=== PATIENT | female | born 1970 | race Caucasian/White ===

== ENCOUNTER 2016-10-05 00:20 | Emergency (ER) | payer OTHER ==
[~2016-10-05] VITALS: Ht 167.6 cm; Wt 85.0 kg
[~2016-10-05 00:20] MED LIST: TRAM50TA PO
[2016-10-05 00:24] VITALS: BP 138/74; PULSE 86; RESP 16; TEMP 98.8; O2SAT 97
[2016-10-05] MEDS ORDERED: GABA100C4 PO (00:28)
[2016-10-05] MEDS ORDERED: KETOROLAC TROMETHAMINE 60 MG/2 ML (IM) VIAL IM ONE (00:45)
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
== END 2016-10-05 02:38 | disposition home or self-care (01) ==
LOC: NEPE 00:20
DX: M25.512 Pain in left shoulder (principal); F10.129 Alcohol abuse with intoxication, unspecified; F17.290 Nicotine dependence, other tobacco product, uncomplicated; I10 Essential (primary) hypertension; K21.9 Gastro-esophageal reflux disease without esophagitis
CPT/HCPCS: 73030; 84703; 96372; 99284; J1885

== ENCOUNTER 2016-11-14 08:41 | Emergency (ER) | payer OTHER ==
[~2016-11-14] VITALS: Ht 170.2 cm; Wt 76.3 kg
[~2016-11-14 08:41] MED LIST changes: +GABA100C4 PO; -TRAM50TA PO
[2016-11-14 08:42] VITALS: BP 118/93; PULSE 90; RESP 20; TEMP 98.4; O2SAT 99
[2016-11-14] MEDS ORDERED: ACETAMINOPHEN/HYDROcodone 325 MG/5 MG TAB PO ONE (09:00)
--- NOTE | 2016-11-14 09:21 | PD ---
HPI Chief Complaint: Injury Time Seen by Provider: 08:54 Travel History International Travel<30 days: No Contact w/Intl Traveler<30days: No Traveled to known affect area: No History of Present Illness HPI 46-year-old female presents to the emergency department with complaint of right ankle pain and swelling since last night after tripping in a hole in the ground and falling. Denies hitting her head or loss of consciousness. Denies neck pain or back pain. Has been ambulatory on the affected extremity. Reports pain is to the lateral aspect. Denies paresthesias, loss of sensation to the affected extremity. Has not taken any medications or tried any treatments to review her symptoms. Pain is aggravated with palpation, movement, ambulation. Symptoms are moderate in severity. Allergies to penicillin. No other medical complaints. No other modifying factors or associated signs and symptoms. PFSH Past Medical History Arthritis: No Blood Disorders: No Anxiety: Yes Depression: Yes Heart Rhythm Problems: No Cancer: No Cardiovascular Problems: Yes High Cholesterol: No Chest Pain: Yes Congestive Heart Failure: No Cerebrovascular Accident: No Diminished Hearing: No Endocrine: No Gastrointestinal Disorders: Yes GERD: Yes Genitourinary: No Headaches: Yes Hepatitis: No Hiatal Hernia: No Hypertension: Yes Immune Disorder: No Implanted Vascular Access Dvce: Yes Musculoskeletal: Yes Neurologic: Yes Psychiatric: Yes Reproductive: No Respiratory: No Migraines: No Myocardial Infarction: No Seizures: Yes (SINCE 2000) Ulcer: No ?: Not LMP: CURRENT : 3 Para: 2 Miscarriage: 1 Past Surgical History Abdominal Surgery: No AICD: No Appendectomy: No Arteriovenous Shunt: No Cardiac Surgery: No Cholecystectomy: No Ear Surgery: No Endocrine Surgery: No Eye Surgery: No Genitourinary Surgery: No Gynecologic Surgery: No Insulin Pump: No Joint Replacement: Yes Neurologic Surgery: No Oral Surgery: No Pacemaker: No Thoracic Surgery: No Other Surgery: Yes Social History Alcohol Use: Yes (OCC) Tobacco Use: Yes (1/4 PACK DAILY) Substance Use: No Allergies-Medications (Allergen,Severity, Reaction): Coded Allergies: penicillin G (Unverified Allergy, Severe, 10/09/16) Reported Meds & Prescriptions Reported Meds & Active Scripts Active Ibuprofen 800 Mg Tab 800 Mg PO Q6HR PRN Lortab (Hydrocodone-Acetaminophen) 5-325 Mg Tab 1-2 Tab PO Q6H PRN Reported Gabapentin 100 Mg Cap 100 Mg PO TID Review of Systems Except as stated in HPI: all other systems reviewed are Neg Physical Exam Narrative GENERAL: Well-nourished, well-developed female patient, in no acute distress SKIN: Warm and dry. HEAD: Atraumatic. Normocephalic. EYES: Pupils equal and round. No scleral icterus. No injection or drainage. ENT: Mucosa pink and moist. Airway patent. NECK: Trachea midline. CARDIOVASCULAR: Regular rate. RESPIRATORY: No accessory muscle use. GASTROINTESTINAL: Rounded. MUSCULOSKELETAL: Right ankle with point tenderness to the lateral malleolar zone with palpation; edema noted to the lateral malleolar aspect; without ecchymosis, erythema; no obvious deformity. Right Lower extremity is supple and nontense with 2+ pedal pulse and sensory intact. No obvious deformities. No clubbing. No cyanosis. NEUROLOGICAL: Awake and alert. Oriented 3. No obvious cranial nerve deficits. Motor grossly within normal limits. Normal speech. PSYCHIATRIC: Appropriate mood and affect; insight and judgment normal. Data Data Last Documented VS Vital Signs Date Time Temp Pulse Resp B/P (MAP) Pulse Ox O2 Delivery O2 Flow Rate FiO2 11/14/16 10:54 11/14/16 08:51 Room Air 11/14/16 08:42 98.4 90 20 99 Orders Orders Acetamin-Hydrocod 325-5 Mg ([place] 5-325 (11/14/16 09:00) Ankle, Complete ([id number]) (11/14/16 08:56) Ice/Cold Pack (11/14/16 08:56) Crutches (11/14/16 08:56) Splint Or Brace Apply/Monitor (11/14/16 09:40) MDM Medical Decision Making Medical Screen Exam Complete: Yes Emergency Medical Condition: Yes Medical Record Reviewed: Yes Differential Diagnosis Ankle sprain, ankle fracture, ankle injury Narrative Course 46-year-old female with right ankle injury after mechanical fall last night. Lortab administered in the ER. Right ankle x-ray ordered. 0939: Right ankle x-ray concludes: Last 24 hours Impressions Ankle X-Ray 11/14/16 0856 Signed Impressions: Service Date/Time: Monday, November 14, 2016 09:21 - CONCLUSION: 1. Nondisplaced oblique fracture of the distal fibular metaphysis with adjacent soft tissue swelling. 2. Nonspecific ossific density projecting anterior to the tibiotalar joint on the lateral view. Question whether this may represent a fracture fragment, change related to old trauma, or a loose body. Marcos Lopez MD Herrera splint placed in emergency department. Crutches provided for support. Lortab and ibuprofen prescribed for home. Instructed patient to follow up with orthopedics by the end of the week. Instructed patient to follow up with primary care provider. Patient verbalizes understanding and agreement with treatment plan. Patient is medically cleared and stable for discharge. Discussed reasons to return to the emergency department. Patient agrees with treatment plan. The patients vital signs are stable and the patient is stable for outpatient follow-up and treatment. Patient discharged home, stable and in no acute distress. Diagnosis Primary Impression: Ankle fracture, right Qualified Codes: S82.891A - Other fracture of right lower leg, initial encounter for closed fracture Referrals: Orthopaedic Surgeon Primary Care Physician Patient Instructions: Ankle Fracture (ED), Crutch Instructions (ED), General Instructions Departure Forms: Tests/Procedures, Work Release Special Instructions: No work until cleared by primary care provider or orthopedics Additional Instructions: Tylenol or ibuprofen as directed and as needed for pain and inflammation Rest, ice, compress, and elevate extremity to decrease pain and inflammation Splint for support; do not remove splint until cleared Crutches for support; no bearing weight until you follow up with orthopedics for further instruction Avoid aggravating activity; increase activity as tolerated Follow-up with primary care provider Follow-up with orthopedics within 3-5 days Return to the emergency department immediately with worsening of symptoms Med/Other Pt SpecificInfo: Prescription(s) given Scripts Ibuprofen (Ibuprofen) 800 Mg Tab 800 MG PO Q6HR Y for PAIN, #30 TAB 0 Refills Prov: Mehnaz Talley 11/14/16 Hydrocodone-Acetaminophen (Lortab) 5-325 Mg Tab 1-2 TAB PO Q6H Y for PAIN, #20 TAB 0 Refills Prov: Mehnaz Talley 11/14/16 Disposition: 01 DISCHARGE HOME Condition: Stable Mehnaz Talley Nov 14, 2016 09:20
--- NOTE | 2016-11-14 09:30 | RADRPT ---
EXAM DATE/TIME: 11/14/2016 09:21 [facility] COMPARISON: No previous studies available for comparison. INDICATIONS : Twisted ankle in hole, pain with swelling lateral malleous. MEDICAL HISTORY : None. SURGICAL HISTORY : None. ENCOUNTER: Initial ACUITY: 2 days PAIN SCORE: 8/10 LOCATION: Right ankle. FINDINGS: 3 views of the right ankle demonstrate an oblique nondisplaced fracture through the distal fibular me taphysis. Medial fracture line extends to about the level of the syndesmosis. There is adjacent later al ankle soft tissue swelling. Ankle mortise is intact. There is nonspecific osseous density projecti ng anterior to the distal tibial epiphysis only visualized on the lateral projection. No radiopaque f oreign body is seen. CONCLUSION: 1. Nondisplaced oblique fracture of the distal fibular metaphysis with adjacent soft tissue swelling. 2. Nonspecific ossific density projecting anterior to the tibiotalar joint on the lateral view. Quest ion whether this may represent a fracture fragment, change related to old trauma, or a loose body. Marcos Lopez MD on November 14, 2016 at 9:26 Board Certified Radiologist. This report was verified electronically.
[2016-11-14] MEDS ORDERED: IBUP800T23 PO (09:44)
[2016-11-14] MEDS ORDERED: HYDR-3533 PO (09:44)
== END 2016-11-14 10:55 | disposition home or self-care (01) ==
LOC: NEPD 08:41
DX: S82.891A Other fracture of right lower leg, initial encounter for closed fracture (principal); W01.0XXA Fall on same level from slipping, tripping and stumbling without subsequent striking against object, initial encounter; Y93.01 Activity, walking, marching and hiking; I10 Essential (primary) hypertension; Z72.0 Tobacco use
CPT/HCPCS: 29515; 73610; 99283; E0113

== ENCOUNTER 2016-11-23 14:02 | Emergency (ER) | payer OTHER ==
[~2016-11-23] VITALS: Ht 170.2 cm; Wt 80.0 kg
[~2016-11-23 14:02] MED LIST changes: +HYDR-3533 PO; +IBUP800T23 PO
[2016-11-23 14:05] VITALS: BP 152/84; PULSE 98; RESP 17; TEMP 98.5; O2SAT 97
--- NOTE | 2016-11-23 15:46 | PD ---
HPI Chief Complaint: Musculoskeletal Complaint Time Seen by Provider: 15:46 Travel History International Travel<30 days: No Contact w/Intl Traveler<30days: No Traveled to known affect area: No History of Present Illness HPI 46-year-old female requesting that her right lower extremity Mackall splint be rewrapped with an Nathaniel wrap. Apparently she took off the Nathaniel wrap and was unable to get the Nathaniel wrap back on in a secure fashion. She denies fully removing the splint itself. She denies increased pain in the extremity she reports the area is actually less painful. She is also requesting referral to orthopedic doctor stating she lost her paperwork. She denies any medical complaint. She is requesting only to have the splint rewrapped with an Nathaniel and or the referral. PFSH Past Medical History Arthritis: No Blood Disorders: No Anxiety: Yes Depression: Yes Heart Rhythm Problems: No Cancer: No Cardiovascular Problems: Yes High Cholesterol: No Chest Pain: Yes Congestive Heart Failure: No Cerebrovascular Accident: No Diminished Hearing: No Endocrine: No Gastrointestinal Disorders: Yes GERD: Yes Genitourinary: No Headaches: Yes Hepatitis: No Hiatal Hernia: No Hypertension: Yes Immune Disorder: No Implanted Vascular Access Dvce: Yes Musculoskeletal: Yes Neurologic: Yes Psychiatric: Yes Reproductive: No Respiratory: No Migraines: No Myocardial Infarction: No Seizures: Yes (SINCE 2000) Ulcer: No ?: Not LMP: 11/09/16 : 3 Para: 2 Miscarriage: 1 Past Surgical History Abdominal Surgery: No AICD: No Appendectomy: No Arteriovenous Shunt: No Cardiac Surgery: No Cholecystectomy: No Ear Surgery: No Endocrine Surgery: No Eye Surgery: No Genitourinary Surgery: No Gynecologic Surgery: No Insulin Pump: No Joint Replacement: Yes Neurologic Surgery: No Oral Surgery: No Pacemaker: No Thoracic Surgery: No Other Surgery: Yes Social History Alcohol Use: Yes ([facility]) Tobacco Use: Yes (1/4 PACK DAILY) Substance Use: No Allergies-Medications (Allergen,Severity, Reaction): Coded Allergies: penicillin G (Verified Allergy, Severe, 11/23/16) Reported Meds & Prescriptions Reported Meds & Active Scripts Active Ibuprofen 800 Mg Tab 800 Mg PO Q6HR PRN Lortab (Hydrocodone-Acetaminophen) 5-325 Mg Tab 1-2 Tab PO Q6H PRN Reported Gabapentin 100 Mg Cap 100 Mg PO TID Review of Systems Except as stated in HPI: all other systems reviewed are Neg General / Constitutional: No: Fever Eyes: No: Visual changes HENT: No: Headaches Cardiovascular: No: Chest Pain or Discomfort Physical Exam Narrative GENERAL: Well-nourished, well-developed patient. SKIN: Focused skin assessment warm/dry. CARDIOVASCULAR: Regular rate and rhythm without murmurs, gallops, or rubs. RESPIRATORY: Breath sounds equal bilaterally. No accessory muscle use. MUSCULOSKELETAL: No cyanosis, or edema. Diaz splint to the right lower extremity. Patient has normal sensation, coloration and brisk cap refill of the toes. Data Data Last Documented VS Vital Signs Date Time Temp Pulse Resp B/P (MAP) Pulse Ox O2 Delivery O2 Flow Rate FiO2 11/23/16 15:56 11/23/16 14:05 98.5 98 17 97 Room Air Orders Orders Nathaniel Bandage (11/23/16 15:40) MDM Medical Decision Making Medical Screen Exam Complete: Yes Emergency Medical Condition: Yes Differential Diagnosis Splint reapplication, ankle fracture recheck. Narrative Course 46-year-old female requesting that her right lower extremity Mackall splint be rewrapped with an Nathaniel wrap. Apparently she took off the Nathaniel wrap and was unable to get the Nathaniel wrap back on in a secure fashion. She denies fully removing the splint itself. She denies increased pain in the extremity she reports the area is actually less painful. She is also requesting referral to orthopedic doctor stating she lost her paperwork. She denies any medical complaint. She is requesting only to have the splint rewrapped with an Nathaniel and or the referral. Diagnosis Primary Impression: Ankle fracture Qualified Codes: S82.891D - Other fracture of right lower leg, subsequent encounter for closed fracture with routine healing Referrals: Jeff Diaz MD Orthopedist Additional Instructions: Make an appointment with orthopedic for follow-up this week. Keep the splint in place. Disposition: 01 DISCHARGE HOME Condition: Stable Marco AntonioquianaBarb Nov 23, 2016 15:46
== END 2016-11-23 16:00 | disposition home or self-care (01) ==
LOC: NEPK 14:02
DX: S82.891D Other fracture of right lower leg, subsequent encounter for closed fracture with routine healing (principal); X58.XXXD Exposure to other specified factors, subsequent encounter
CPT/HCPCS: 99282

== ENCOUNTER 2017-01-06 02:52 | Emergency (ER) | payer OTHER ==
[~2017-01-06 02:52] MED LIST changes: +IBUP1TAB7 PO; -IBUP800T23 PO
[2017-01-06] MEDS ORDERED: SODIUM CHLORIDE 0.9% FLUSH 10 ML FLUSH IV FLUSH PRN (03:00)
[2017-01-06 03:01] VITALS: BP 143/76; PULSE 89; RESP 18; TEMP 98.6; O2SAT 98
[2017-01-06] MEDS ORDERED: CITA20TA4 PO (03:04)
[2017-01-06] MEDS ORDERED: GABA800T PO (03:04)
[2017-01-06] MEDS ORDERED: TRAZ50TA12 PO (03:04)
--- NOTE | 2017-01-06 03:06 | PD ---
HPI Chief Complaint: Injury Time Seen by Provider: 03:02 Travel History International Travel<30 days: No Contact w/Intl Traveler<30days: No Traveled to known affect area: No History of Present Illness HPI Patient comes emergency Department complaining of right lower lateral rib pain described as sharp stabbing like in nature that began shortly prior to arrival. Patient states she was sleeping on the top bunk when she accidentally rolled out of the bunk bed hitting her right lower rib cage on unknown object. Patient states pain is worse with deep inspiration. Patient denies doing anything for this prior to coming to the emergency department. Denies hitting her head or loss of consciousness. Denies being on any blood thinners. PFSH Past Medical History Arthritis: No Blood Disorders: No Anxiety: Yes Depression: Yes Heart Rhythm Problems: No Cancer: No Cardiovascular Problems: Yes High Cholesterol: No Chest Pain: Yes Congestive Heart Failure: No Cerebrovascular Accident: No Diminished Hearing: No Endocrine: No Gastrointestinal Disorders: Yes GERD: Yes Genitourinary: No Headaches: Yes Hepatitis: No Hiatal Hernia: No Hypertension: Yes Immune Disorder: No Implanted Vascular Access Dvce: Yes Musculoskeletal: Yes Neurologic: Yes Psychiatric: Yes Reproductive: No Respiratory: No Migraines: No Myocardial Infarction: No Seizures: Yes (SINCE 2000) Ulcer: No ?: Unknown : 3 Para: 2 Miscarriage: 1 Past Surgical History Abdominal Surgery: No AICD: No Appendectomy: No Arteriovenous Shunt: No Cardiac Surgery: No Cholecystectomy: No Ear Surgery: No Endocrine Surgery: No Eye Surgery: No Genitourinary Surgery: No Gynecologic Surgery: No Insulin Pump: No Joint Replacement: Yes Neurologic Surgery: No Oral Surgery: No Pacemaker: No Thoracic Surgery: No Other Surgery: Yes Social History Alcohol Use: Yes ([facility]) Tobacco Use: Yes (1/4 PACK DAILY) Substance Use: No Allergies-Medications (Allergen,Severity, Reaction): Coded Allergies: penicillin G (Verified Allergy, Severe, 11/23/16) Reported Meds & Prescriptions Reported Meds & Active Scripts Active Reported Citalopram (Citalopram Hydrobromide) 20 Mg Tab 20 Mg PO DAILY Trazodone (Trazodone HCl) 50 Mg Tab 50 Mg PO HS Gabapentin 800 Mg Tab 800 Mg PO TID Review of Systems Except as stated in HPI: all other systems reviewed are Neg Physical Exam Narrative GENERAL: Well-developed, overly nourished, in no acute distress, and non-ill appearing. SKIN: Focused skin assessment warm and dry. No ecchymosis appreciated over right lower lateral rib cage or abdomen. HEAD: Atraumatic. Normocephalic. EYES: Pupils equal and round. EOMI. No scleral icterus. No injection or drainage. ENT: No nasal bleeding or discharge. Mucous membranes pink and moist. NECK: Trachea midline. Supple. No nuclear rigidity. CARDIOVASCULAR: Regular rate and rhythm. No murmur appreciated. RESPIRATORY: No accessory muscle use. No respiratory distress. Clear to auscultation. Breath sounds equal bilaterally. Patient reports tenderness to palpation right lower lateral rib cage. There is no crepitus or step-off. GASTROINTESTINAL: Abdomen soft, nondistended, and no guarding. Hepatic and splenic margins not palpable. Normal bowel sounds 4. No pulsatile mass. Patient reports is palpation right upper quadrant abdominal. There is no ecchymosis. MUSCULOSKELETAL: No obvious deformities. No clubbing. No cyanosis. No edema. Full range of motion. NEUROLOGICAL: Awake and alert. No obvious cranial nerve deficits. Motor grossly within normal limits. Normal speech. PSYCHIATRIC: Appropriate mood and affect; insight and judgment normal. Data Data Last Documented VS Vital Signs Date Time Temp Pulse Resp B/P (MAP) Pulse Ox O2 Delivery O2 Flow Rate FiO2 01/06/17 04:50 01/06/17 03:31 98 Room Air 01/06/17 03:01 98.6 89 18 Orders Orders Basic Metabolic Panel (Bmp) (01/06/17 03:00) Complete Blood Count With Diff (01/06/17 03:00) Prothrombin Time / Inr (Pt) (01/06/17 03:00) Act Partial Throm Time (Ptt) (01/06/17 03:00) Ct Abd/Pel W Iv Contrast(Rout) (01/06/17 03:00) Iv Access Insert/Monitor (01/06/17 03:00) Ecg Monitoring (01/06/17 03:00) Oximetry (01/06/17 03:00) Sodium Chloride 0.9% Flush (Ns Flush) (01/06/17 03:00) Ribs, Uni (W/Exp Cxr-Min 3vw) (01/06/17 ) Ice/Cold Pack (01/06/17 03:00) Resp Incentive Spirometry (01/06/17 ) Ketorolac Inj (Toradol Inj) (01/06/17 03:15) Sodium Chlorid 0.9% 500 Ml Inj (Ns 500 M (01/06/17 03:15) Iohexol 350 Inj (Omnipaque 350 Inj) (01/06/17 04:16) Potassium Chloride (Kcl) (01/06/17 04:45) Ed Discharge Order (01/06/17 04:50) Labs Laboratory Tests Test 01/06/17 03:05 White Blood Count 5.4 TH/MM3 Red Blood Count 3.83 MIL/MM3 Hemoglobin 9.6 GM/DL Hematocrit 30.4 % Mean Corpuscular Volume 79.2 FL Mean Corpuscular Hemoglobin 24.9 PG Mean Corpuscular Hemoglobin Concent 31.5 % Red Cell Distribution Width 20.0 % Platelet Count 103 TH/MM3 Mean Platelet Volume 9.4 FL Neutrophils (%) (Auto) 48.7 % Lymphocytes (%) (Auto) 38.2 % Monocytes (%) (Auto) 10.3 % Eosinophils (%) (Auto) 2.1 % Basophils (%) (Auto) 0.7 % Neutrophils # (Auto) 2.6 TH/MM3 Lymphocytes # (Auto) 2.1 TH/MM3 Monocytes # (Auto) 0.6 TH/MM3 Eosinophils # (Auto) 0.1 TH/MM3 Basophils # (Auto) 0.0 TH/MM3 CBC Comment DIFF FINAL Differential Comment Prothrombin Time 11.7 SEC Prothromb Time International Ratio 1.1 RATIO Activated Partial Thromboplast Time 23.8 SEC Blood Urea Nitrogen 8 MG/DL Creatinine 0.72 MG/DL Random Glucose 98 MG/DL Calcium Level 7.9 MG/DL Sodium Level 142 MEQ/L Potassium Level 3.2 MEQ/L Chloride Level 106 MEQ/L Carbon Dioxide Level 28.7 MEQ/L Anion Gap 7 MEQ/L Estimat Glomerular Filtration Rate 88 ML/MIN MDM Medical Decision Making Medical Screen Exam Complete: Yes Emergency Medical Condition: Yes Interpretation(s) CT abdomen and pelvis read by the radiologist shows: No evidence of acute abdominal or pelvic process. No masses are identified. Rib x-rays read by the radiologist shows: There is no evidence of acute fracture. Differential Diagnosis Fracture, contusion, strain, liver laceration, kidney laceration, other Narrative Course The patient suffered a minor chest wall contusion. There is no clinical evidence to suggest intrathoracic injury nor cardiac injury at this time. The patient has no significant pain, shortness of breath or dyspnea. The patient moves air well without difficulty and is clear to auscultation. Heart sounds are audible without rubs, murmurs or gallops. There is no palpable crepitus. Pulses are symmetrical and strong. There is no CT evidence of injury to the liver nor spleen. Chest X-ray was normal without evidence of fracture, pneumothorax or hemothorax. The Mediastinum appeared within normal limits. Diagnosis was discussed with the patient. The patient is to return if develops any worsening pain difficulty breathing, or if coughs up blood or develops fever. Patient agrees with plan and was recommended to follow up with their regular physician. Patient in no obvious distress upon re-evaluation. All pertinent laboratory/ Radiology result(s) discussed with patient. Any questions/concerns in reference to patient diagnosis/condition discussed and clarified prior to patient's discharge. Reinforced sheer importance of close follow up with patient 's primary physician or primary care clinic. Instructed patient to return to ED immediately, if symptoms return/worsen. Patient showed understanding of above instructions. Further instructions and recommendations were detailed in discharge paperwork. Patient ambulated without difficulty out of ED at discharge. Diagnosis Primary Impression: Contusion of rib on right side Qualified Codes: S20.211A - Contusion of right front wall of thorax, initial encounter Additional Impressions: Anemia Qualified Codes: D64.9 - Anemia, unspecified Thrombocytopenia Hypokalemia Referrals: [facility] Patient Instructions: Anemia (DC), General Instructions, Hypokalemia (ED), Rib Contusion (ED), Thrombocytopenia (ED) Additional Instructions: Follow-up with your primary care physician and/or bell neck hammerer for re- evaluation incidental lab findings and bruised ribs. Use [id number] Tylenol as needed for pain. Follow instructions on the packaging. Apply ice to affected area 20 minutes per hour as needed for pain. Use incentive spirometer as instructed 10 times per hour to help prevent pneumonia. Return to the emergency department if symptoms get worse. Disposition: 01 DISCHARGE HOME Condition: Stable Juan Luis Baker Jan 06, 2017 03:06
[2017-01-06] MEDS ORDERED: SODIUM CHLORID 0.9% 500 ML INJ 500 ML IV ONE (03:15)
[2017-01-06] MEDS ORDERED: KETOROLAC TROMETHAMINE 30 MG/ML (IVP) VIAL IV PUSH ONE (03:15)
[2017-01-06 03:29] LABS: AUTOMATED NEUTROPHIL # 2.6 TH/MM3 (1.8-7.7); BASOPHIL % 0.7 % (0.0-2.0); EOSINOPHIL # 0.1 TH/MM3 (0-0.4); EOSINOPHIL % 2.1 % (0.0-4.0); HEMATOCRIT 30.4 % (35.0-46.0); HEMO FLAGS DIFF FINAL; LYMPH % 38.2 % (9.0-44.0); LYMPHOCYTE # 2.1 TH/MM3 (1.0-4.8); MEAN CELL VOLUME 79.2 FL (80.0-100.0); MEAN CORPUSCULAR HEMOGLOBIN 24.9 PG (27.0-34.0); MEAN CORPUSCULAR HGB CONC 31.5 % (32.0-36.0); MONO % 10.3 % (0.0-8.0); NEUT % 48.7 % (16.0-70.0); PLATELET COUNT 103 TH/MM3 (150-450); RED BLOOD COUNT 3.83 MIL/MM3 (4.00-5.30); WHITE BLOOD COUNT 5.4 TH/MM3 (4.0-11.0)
[2017-01-06 03:31] VITALS: O2SAT 98
[2017-01-06 03:48] LABS: APTT (PATIENT) 23.8 SEC (24.3-30.1); INTERNATIONAL NORMALIZED RATIO 1.1 RATIO; PROTHROMBIN TIME - PATIENT 11.7 SEC (9.8-11.6)
[2017-01-06 03:51] LABS: BICARBONATE 28.7 MEQ/L (21.0-32.0); POTASSIUM 3.2 MEQ/L (3.5-5.1)
--- NOTE | 2017-01-06 03:57 | RADRPT ---
EXAM DATE/TIME: 01/06/2017 03:15 [facility] COMPARISON: RIBS RIGHT(W PA CXR MIN 3VWS), July 22, 2016, 0:31. INDICATIONS : Right anterior rib pain post fall from top bunk bed MEDICAL HISTORY : None. SURGICAL HISTORY : None. ENCOUNTER: Initial ACUITY: 1 day PAIN SCORE: 8/10 LOCATION: Right Ribs FINDINGS: The cardiac silhouette is enlarged in transverse diameter. The lungs are free of acute parenchymal op acity. No effusions are identified. There is no evidence of pneumothorax. Old left humerus fracture is present. There is an old fracture of the right 10th rib. CONCLUSION: 1. There is no evidence of acute fracture. Victor M Larson MD on January 06, 2017 at 3:54 Board Certified Radiologist. This report was verified electronically.
[2017-01-06] MEDS ORDERED: IOHEXOL 350 MG/ML 10 ML VIAL (for RAD DIAG) IVCONTRAST ONE (04:16)
--- NOTE | 2017-01-06 04:37 | RADRPT ---
EXAM DATE/TIME: 01/06/2017 04:14 [facility] COMPARISON: No previous studies available for comparison. INDICATIONS : Trauma, patient fell from top [facility]. IV CONTRAST: 95 cc Omnipaque 350 (iohexol) IV ORAL CONTRAST: No oral contrast ingested. RADIATION DOSE: 12.60 CTDIvol (mGy) MEDICAL HISTORY : Gastroesophageal reflux disease. Seizures. Hypertension. SURGICAL HISTORY : None. ENCOUNTER: Initial ACUITY: 1 day PAIN SCALE: 4/10 LOCATION: Right abdomen TECHNIQUE: Volumetric scanning of the abdomen and pelvis was performed. Using automated exposure control and ad justment of the mA and/or kV according to patient size, radiation dose was kept as low as reasonably achievable to obtain optimal diagnostic quality images. DICOM format image data is available electro nically for review and comparison. FINDINGS: LOWER LUNGS: The visualized lower lungs are clear. LIVER: Homogeneous density without lesion. There is no dilation of the biliary tree. No calcified gallston es. SPLEEN: Normal size without lesion. PANCREAS: Within normal limits. KIDNEYS: Normal in size and shape. There is no mass, stone or hydronephrosis. ADRENAL GLANDS: Within normal limits. VASCULAR: There is no aortic aneurysm. BOWEL/MESENTERY: The stomach, small bowel, and colon demonstrate no acute abnormality. There is no free intraperitone al air or fluid. ABDOMINAL WALL: Within normal limits. RETROPERITONEUM: There is no lymphadenopathy. BLADDER: No wall thickening or mass. REPRODUCTIVE: Within normal limits. INGUINAL: There is no lymphadenopathy or hernia. MUSCULOSKELETAL: Within normal limits for patient age. CONCLUSION: 1. No evidence of acute abdominal or pelvic process. No masses are identified. Victor M Larson MD on January 06, 2017 at 4:33 Board Certified Radiologist. This report was verified electronically.
[2017-01-06] MEDS ORDERED: POTASSIUM CHLORIDE 20 MEQ CONTROLLED RELEASE TAB PO ONE (04:45)
== END 2017-01-06 05:17 | disposition home or self-care (01) ==
LOC: NEPD 02:52
DX: S20.211A Contusion of right front wall of thorax, initial encounter (principal); D69.6 Thrombocytopenia, unspecified; E87.6 Hypokalemia; W06.XXXA Fall from bed, initial encounter; Y93.84 Activity, sleeping
CPT/HCPCS: 71101; 74177; 80048; 85025; 85610; 85730; 94150; 96361; 96374; 99285; J1885; J7040; Q9967

== ENCOUNTER 2017-01-26 22:05 | Emergency (ER) | payer OTHER ==
[~2017-01-26] VITALS: Ht 170.2 cm; Wt 80.0 kg
[~2017-01-26 22:05] MED LIST changes: +CITA20TA4 PO; -GABA100C4 PO; +GABA800T PO; -HYDR-3533 PO; -IBUP1TAB7 PO; +TRAZ50TA12 PO
[2017-01-26 22:06] VITALS: BP 134/75; PULSE 104; RESP 20; TEMP 98.7; O2SAT 100
[2017-01-26] MEDS ORDERED: ACETAMINOPHEN 325 MG TAB PO ONE (23:00)
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
--- NOTE | 2017-01-26 23:18 | RADRPT ---
EXAM DATE/TIME: 01/26/2017 23:02 [facility] COMPARISON: No previous studies available for comparison. INDICATIONS : Thumb pain due to fall. MEDICAL HISTORY : None. SURGICAL HISTORY : None. ENCOUNTER: Initial ACUITY: 1 day PAIN SCORE: 10/10 LOCATION: Right upper extremity thumb FINDINGS: 2 views of the right hand first digit demonstrate no fracture or dislocation. Mineralization is minerva l. No soft tissue abnormality or radiopaque foreign body is identified. The visualized running struct ures demonstrate no acute finding. CONCLUSION: No acute abnormality is identified. Marcos Lopez MD on January 26, 2017 at 23:15 Board Certified Radiologist. This report was verified electronically.
== END 2017-01-27 00:08 | disposition home or self-care (01) ==
LOC: NEPD 22:05
DX: S63.601A Unspecified sprain of right thumb, initial encounter (principal); I10 Essential (primary) hypertension; F17.200 Nicotine dependence, unspecified, uncomplicated; Z86.59 Personal history of other mental and behavioral disorders; Z86.79 Personal history of other diseases of the circulatory system; Z87.19 Personal history of other diseases of the digestive system; Z87.39 Personal history of other diseases of the musculoskeletal system and connective tissue; Z86.69 Personal history of other diseases of the nervous system and sense organs; W23.1XXA Caught, crushed, jammed, or pinched between stationary objects, initial encounter; Y92.811 Bus as the place of occurrence of the external cause
CPT/HCPCS: 73140; 99283

== ENCOUNTER 2017-03-12 16:32 | Emergency (ER) | payer OTHER ==
[2017-03-12 16:33] VITALS: BP 148/71; PULSE 77; RESP 16; TEMP 98.7; O2SAT 99
[2017-03-12] MEDS ORDERED: FLUT1SPR5 EACH NARE (17:38)
[2017-03-12] MEDS ORDERED: BENZ100 PO (17:38)
--- NOTE | 2017-03-12 17:38 | PD ---
HPI Chief Complaint: Cold / Flu Symptoms Time Seen by Provider: 16:59 Travel History International Travel<30 days: No Contact w/Intl Traveler<30days: No Traveled to known affect area: No History of Present Illness HPI 46-year-old female here with sore throat, cough, nasal congestion for one week. Symptom severity is mild. No aggravating actors. Unrelieved by OTC cough and cold medicine. He denies fever or chills. PFSH Past Medical History Arthritis: No Blood Disorders: No Anxiety: Yes Depression: Yes Heart Rhythm Problems: No Cancer: No Cardiovascular Problems: Yes High Cholesterol: No Chest Pain: Yes Congestive Heart Failure: No Cerebrovascular Accident: No Diminished Hearing: No Endocrine: No Gastrointestinal Disorders: Yes GERD: Yes Genitourinary: No Headaches: Yes Hepatitis: No Hiatal Hernia: No Hypertension: Yes Immune Disorder: No Implanted Vascular Access Dvce: Yes Musculoskeletal: Yes Neurologic: Yes Psychiatric: Yes Reproductive: No Respiratory: No Migraines: No Myocardial Infarction: No Seizures: Yes (SINCE 2000) Ulcer: No ?: Not LMP: 03/04/17 : 3 Para: 2 Miscarriage: 1 Past Surgical History Abdominal Surgery: No AICD: No Appendectomy: No Arteriovenous Shunt: No Cardiac Surgery: No Cholecystectomy: No Ear Surgery: No Endocrine Surgery: No Eye Surgery: No Genitourinary Surgery: No Gynecologic Surgery: No Insulin Pump: No Joint Replacement: Yes Neurologic Surgery: No Oral Surgery: No Pacemaker: No Thoracic Surgery: No Other Surgery: Yes Social History Alcohol Use: Yes ([facility]) Tobacco Use: Yes (1/4 PACK DAILY) Substance Use: No Allergies-Medications (Allergen,Severity, Reaction): Coded Allergies: penicillin G (Verified Allergy, Severe, 03/12/17) Reported Meds & Prescriptions Reported Meds & Active Scripts Active Reported Citalopram (Citalopram Hydrobromide) 20 Mg Tab 20 Mg PO DAILY Trazodone (Trazodone HCl) 50 Mg Tab 50 Mg PO HS Gabapentin 800 Mg Tab 800 Mg PO TID Review of Systems Except as stated in HPI: all other systems reviewed are Neg General / Constitutional: No: Fever Eyes: No: Visual changes HENT: Positive: Congestion Respiratory: Positive: Cough Gastrointestinal: No: Abdominal Pain Physical Exam Narrative GENERAL: Alert and well-appearing 46-year-old female SKIN: Warm and dry. HEAD: Normocephalic. EYES: No injection or drainage. Ears/nose/throat: Clear nasal discharge. Mild maxillary sinus tenderness. Mild pharyngeal erythema. No tonsillar hypertrophy or exudate. Uvula is midline. Airway is patent. NECK: Supple, trachea midline. No JVD or lymphadenopathy. CARDIOVASCULAR: Regular rate and rhythm RESPIRATORY: Breath sounds equal bilaterally. No accessory muscle use. Data Data Last Documented VS Vital Signs Date Time Temp Pulse Resp B/P (MAP) Pulse Ox O2 Delivery O2 Flow Rate FiO2 03/12/17 16:33 98.7 77 16 148/71 (96) 99 MDM Medical Decision Making Medical Screen Exam Complete: Yes Emergency Medical Condition: Yes Differential Diagnosis URI, sinusitis, bronchitis Narrative Course 46-year-old female here with mild URI-like symptoms. She is reporting a persistent cough that keeps her from sleeping at night. Her vital signs are stable. She'll be treated with Tessalon Perle and Flonase. Diagnosis Primary Impression: URI (upper respiratory infection) Qualified Codes: J06.9 - Acute upper respiratory infection, unspecified; B97.89 - Other viral agents as the cause of diseases classified elsewhere Referrals: Primary Care Physician Scripts Fluticasone Nasal [place] (Flonase Nasal [place]) 50 Mcg/Act [place] 50 MCG EACH NARE BID for Allergies, #1 BOTTLE 0 Refills Prov: Barb Horan 03/12/17 Benzonatate (Tessalon Perles) 100 Mg Cap 100 MG PO TID Y for COUGH, #14 CAP 0 Refills Prov: Barb Horan 03/12/17 Disposition: 01 DISCHARGE HOME Condition: Stable Barb Horan Mar 12, 2017 17:38
== END 2017-03-12 17:56 | disposition home or self-care (01) ==
LOC: NEPK 16:32
DX: J06.9 Acute upper respiratory infection, unspecified (principal); B97.89 Other viral agents as the cause of diseases classified elsewhere; F17.200 Nicotine dependence, unspecified, uncomplicated
CPT/HCPCS: 99284

== ENCOUNTER 2017-04-24 14:58 | Emergency (ER) | payer OTHER ==
[~2017-04-24] VITALS: Ht 170.2 cm; Wt 82.0 kg
[~2017-04-24 14:58] MED LIST changes: +BENZ100 PO; +CLON1TAB PO; +FIORIC PO; +FLUT1SPR5 EACH NARE; +IBUP600 PO; +PHEN100 PO
[2017-04-24 15:22] VITALS: BP 128/67; PULSE 90; RESP 17; TEMP 98.5; O2SAT 98
[2017-04-24] MEDS ORDERED: FLUT1SPR5 EACH NARE (15:44)
[2017-04-24] MEDS ORDERED: FEXO15TA PO (15:44)
--- NOTE | 2017-04-24 15:45 | PD ---
HPI Chief Complaint: Cold / Flu Symptoms Time Seen by Provider: 15:36 Travel History International Travel<30 days: No Contact w/Intl Traveler<30days: No Traveled to known affect area: No History of Present Illness HPI 46-year-old female presents to the emergency department for evaluation of sinus pressure, sore throat, dry cough that started 4-5 days ago. Patient states she has no chronic medical problems and takes no prescribed medications. Patient states that on occasion she'll wake up and her eyes will be swollen, she is concerned of allergies. No pain. No exacerbating or alleviating factors. She was here in February was prescribed a Flonase nasal spray, which she states did help. She has not followed up with her primary care physician. Mild severity. PFSH Past Medical History Hx Anticoagulant Therapy: No Arthritis: No Blood Disorders: No Anxiety: Yes Depression: Yes Heart Rhythm Problems: No Cancer: No Cardiovascular Problems: Yes High Cholesterol: No Chemotherapy: No Chest Pain: Yes Congestive Heart Failure: No Cerebrovascular Accident: No Diabetes: No Diminished Hearing: No Endocrine: No Gastrointestinal Disorders: Yes GERD: Yes Genitourinary: No Headaches: Yes Hepatitis: No Hiatal Hernia: No Hypertension: Yes Immune Disorder: No Implanted Vascular Access Dvce: Yes Musculoskeletal: Yes Neurologic: Yes Psychiatric: Yes Reproductive: No Respiratory: No Migraines: No Myocardial Infarction: No Seizures: Yes (SINCE 2000) Ulcer: No : 3 Para: 2 Miscarriage: 1 Past Surgical History Abdominal Surgery: No AICD: No Appendectomy: No Arteriovenous Shunt: No Cardiac Surgery: No Cholecystectomy: No Ear Surgery: No Endocrine Surgery: No Eye Surgery: No Genitourinary Surgery: No Gynecologic Surgery: No Hysterectomy: No Insulin Pump: No Joint Replacement: Yes Neurologic Surgery: No Oral Surgery: No Pacemaker: No Thoracic Surgery: No Other Surgery: Yes Social History Alcohol Use: Yes (OCC) Tobacco Use: Yes (1/4 PACK DAILY) Substance Use: No Allergies-Medications (Allergen,Severity, Reaction): Coded Allergies: penicillin G (Verified Allergy, Severe, 04/24/17) Reported Meds & Prescriptions Reported Meds & Active Scripts Active Flonase Nasal [place] (Fluticasone Nasal [place]) 50 Mcg/Act [place] 50 Mcg EACH NARE BID Tessalon Perles (Benzonatate) 100 Mg Cap 100 Mg PO TID PRN Motrin 600 Mg Tab (Ibuprofen) 600 Mg Tab 600 Mg PO Q6H PRN Fioricet Tab (Acetaminophen/Butalbital/Caffeine) 1 Tab 1 Tab PO Q6H PRN Clonazepam 1 Mg Tab 1 Tab PO QID PRN Dilantin 100 Mg Kapseals (Phenytoin Sodium) 100 Mg Caper 1 Cap PO TID Reported Citalopram (Citalopram Hydrobromide) 20 Mg Tab 20 Mg PO DAILY Trazodone (Trazodone HCl) 50 Mg Tab 50 Mg PO HS Gabapentin 800 Mg Tab 800 Mg PO TID Review of Systems Except as stated in HPI: all other systems reviewed are Neg Physical Exam Narrative GENERAL: Well-nourished, well-developed female patient, afebrile. SKIN: Focused skin assessment warm/dry. HEAD: Normocephalic. Atraumatic. ENT: Mucosa pink and moist. No erythema or exudates. No uvular edema. No uvular , palatal, or tonsillar deviation. Airway patent. Nasal turbinates appear normal without nasal blood, purulent drainage or septal hematoma. Bilateral tympanic membranes are clear without erythema or perforation. EYES: No scleral icterus. No injection or drainage. NECK: Supple, trachea midline. No JVD or lymphadenopathy. CARDIOVASCULAR: Regular rate and rhythm without murmurs, gallops, or rubs. RESPIRATORY: Breath sounds equal bilaterally. No accessory muscle use. Lungs sounds are clear to auscultation. GASTROINTESTINAL: Abdomen soft, non-tender, nondistended. MUSCULOSKELETAL: No cyanosis, or edema. BACK: Nontender without obvious deformity. No CVA tenderness. Data Data Last Documented VS Vital Signs Date Time Temp Pulse Resp B/P (MAP) Pulse Ox O2 Delivery O2 Flow Rate FiO2 04/24/17 15:22 98.5 90 17 128/67 (87) 98 MDM Medical Decision Making Medical Screen Exam Complete: Yes Emergency Medical Condition: Yes Medical Record Reviewed: Yes Differential Diagnosis Viral URI versus allergic rhinitis versus bronchitis Narrative Course 46-year-old female presents to the emergency department for evaluation of cold symptoms for 4-5 days. She appears well on exam. Patient will be discharged with a prescription for Flonase nasal spray, Mulu. She is to follow-up with her primary care physician or return here for any acute worsening of symptoms. The patient was discharged in stable condition with instructions, including return instructions and follow up instructions. Diagnosis Primary Impression: Upper respiratory infection Qualified Codes: J06.9 - Acute upper respiratory infection, unspecified Additional Impression: Allergic rhinitis Qualified Codes: J30.9 - Allergic rhinitis, unspecified Referrals: Primary Care Physician call for appointment Patient Instructions: Allergic Rhinitis (ED), General Instructions, Upper Respiratory Infection (ED) Departure Forms: Tests/Procedures, Work Release Enter return to work date: Apr 25, 2017 Additional Instructions: Take Mulu daily as directed. Use Flonase nasal spray as directed. Follow-up with your primary care physician. Return to the emergency department for any acute worsening of symptoms. Med/Other Pt SpecificInfo: Prescription(s) given Scripts Fexofenadine (Mulu Allergy) 180 Mg Tab 180 MG PO DAILY for Allergy Management, #30 TAB 0 Refills Prov: Haylee Aldrich 04/24/17 Fluticasone Nasal [place] (Flonase Nasal [place]) 50 Mcg/Act [place] 50 MCG EACH NARE BID for Allergies, #1 BOTTLE 0 Refills Prov: Haylee Aldrich 04/24/17 Disposition: 01 DISCHARGE HOME Condition: Stable Haylee Aldrich Apr 24, 2017 15:45
== END 2017-04-24 16:05 | disposition home or self-care (01) ==
LOC: NEPK 14:58
DX: J06.9 Acute upper respiratory infection, unspecified (principal); J30.9 Allergic rhinitis, unspecified; I10 Essential (primary) hypertension
CPT/HCPCS: 99282